=== PATIENT | male | born 1960 | race Caucasian/White ===

== ENCOUNTER 2017-12-03 08:41 | Day surgery (SDC) | payer OTHER ==
[2017-12-03] MEDS ORDERED: LR 1,000 ML IV ×2 (08:45→14:30)
[2017-12-03] MEDS ORDERED: PROPOFOL 500 MG/50 ML VIAL As Ordered (11:50)
[2017-12-03] MEDS ORDERED: MIDAZOLAM INJ 2 MG/2 ML VIAL (J2250) As Ordered (11:50)
[2017-12-03] MEDS ORDERED: ONDANSETRON 4MG/2ML VIAL (J2405) As Ordered (11:50)
[2017-12-03] MEDS ORDERED: LIDOCAINE 2% INJ 100 MG/5 ML SDV (FOR ANES.) As Ordered (11:50)
[2017-12-03] MEDS ORDERED: fentaNYL 100 MCG/2 ML INJECTION (J3010) As Ordered (11:51)
[2017-12-03] MEDS: BUPIVACAINE HCL 0.25% 30 ML VIAL As Ordered (13:40)
[2017-12-03] MEDS ORDERED: METOCLOPRAMIDE INJ 10MG/2ML VIAL (J2765) IV (14:30)
[2017-12-03] MEDS ORDERED: NORCO, ANEXSIA 5/325MG TABLET (HYDROcodone/ACETAMINOPHEN) PO (14:30)
[2017-12-03] MEDS ORDERED: fentaNYL 100 MCG/2 ML INJECTION (J3010) IV (14:30)
[2017-12-03] MEDS ORDERED: ONDANSETRON 4MG/2ML VIAL (J2405) IV (14:30)
[2017-12-03] MEDS ORDERED: IBUPROFEN 600 MG TAB PO (14:30)
[2017-12-03] MEDS ORDERED: ACETAMINOPHEN TAB 650MG DOSE (2X325MG) PO (14:30)
[2017-12-03] MEDS ORDERED: PERCOCET 5MG/325MG TAB PO (14:30)
== END 2017-12-03 20:30 | disposition home or self-care (01) ==
LOC: M SDC 08:41
DX: K40.90 Unilateral inguinal hernia, without obstruction or gangrene, not specified as recurrent (principal); Z88.5 Allergy status to narcotic agent
CPT/HCPCS: 49505

== ENCOUNTER 2018-10-05 06:38 | Day surgery (SDC) | payer OTHER ==
[2018-10-05] MEDS: NS 1,000 ML IV (07:09)
[2018-10-05] MEDS ORDERED: PROPOFOL 200 MG/20 ML VIAL As Ordered ×2 (07:10)
[2018-10-05] MEDS ORDERED: LIDOCAINE 2% INJ 100 MG/5 ML SDV (FOR ANES.) As Ordered (07:10)
== END 2018-10-05 08:59 | disposition home or self-care (01) ==
LOC: M OPP 06:38
DX: Z12.11 Encounter for screening for malignant neoplasm of colon (principal); R12 Heartburn; K22.8 Other specified diseases of esophagus; K31.89 Other diseases of stomach and duodenum
CPT/HCPCS: 45378